=== PATIENT | male | born 1970 | race Caucasian/White ===

== ENCOUNTER → 2021-11-03 | Emergency (ER) | payer OTHER ==
[~2021-11-03] VITALS: Ht 172.7 cm; Wt 90.7 kg
[~2021-11-03] MED LIST: ADVIL200 M1 PO
[2021-11-03 21:55] LABS: HEMATOCRIT 46.7 % (42.0-52.0); HEMOGLOBIN 15.6 gm/dL (14.0-18.0); MCH 29.5 pg (26.0-34.0); MCHC 33.4 g/dL (28.0-37.0); MCV 88.2 fL (80.0-100.0); RBC 5.29 mil/uL (4.50-6.00); RDW 12.7 % (10.5-14.5); WBC 7.2 thou/uL (4.0-11.0)
[2021-11-03 22:03] LABS: ANION GAP < 0 mmol/L (7-16); BUN 16 mg/dL (7-18); CALCIUM 8.9 mg/dL (8.5-10.1); CHLORIDE 98 mmol/L (98-107); CO2 27 mmol/L (21-32); GLUCOSE 96 mg/dL (74-106); POTASSIUM 4.1 mmol/L (3.5-5.1); SODIUM 124 mmol/L (136-145)
[2021-11-03 22:09] LABS: SGOT 71 U/L (15-37); SGPT 202 U/L (16-63)
[2021-11-03 22:57] VITALS: BP 142/84
== END ==
LOC: ER 19:34
PROVIDERS: Nurse Practitioner Family
DX: U07.1 COVID-19 (principal); E87.1 Hypo-osmolality and hyponatremia; R07.0 Pain in throat; Z90.89 Acquired absence of other organs; Z79.899 Other long term (current) drug therapy